=== PATIENT | male | born 1985 | race Two or more races ===

== ENCOUNTER 2020-06-07 05:29 | Inpatient (IN) | payer SELFPAY ==
[~2020-06-07] VITALS: Ht 177.8 cm; Wt 106.0 kg
[2020-06-07] MEDS ORDERED: ACETAMINOPHEN 325 MG TAB PO ONE (06:15)
[2020-06-07] MEDS ORDERED: SODIUM CHLORIDE 0.9% 1,000 ML IV ONE (06:30)
[2020-06-07] MEDS ORDERED: cefTRIAXone 1GM/50ML D5W 50 ML IV ONE (08:00)
[2020-06-07] MEDS ORDERED: AZITHROMYCIN 500MG/ 250ML 250 ML IV ONE (08:00)
[2020-06-07] MEDS ORDERED: ASCORBIC ACID 500 MG TAB PO ONE (08:00)
[2020-06-07] MEDS ORDERED: ZINC SULFATE 220mg CAP or TAB PO ONE (08:00)
[2020-06-07 08:01] LABS: Basophils # (auto) 0 10 ^3/uL (0-0.2); Basophils % (auto) 0.2 % (0.0-2.0); Eosinophils # (auto) 0 10 ^3/uL (0-0.8); Hematocrit 41.9 % (41.0-53.0); Hemoglobin 13.7 g/dL (13.5-17.5); Lymphocytes # (auto) 0.8 10 ^3/uL (0.4-5.4); Lymphocytes % (auto) 8.3 % (10.0-50.0); Mean Corpuscular Hemoglobin 27.9 pg (28.0-32.0); Mean Corpuscular Hgb Conc. 32.8 g/dL (32.0-36.0); Mean Corpuscular Volume 85.2 fL (80.0-100.0); Monocytes # (auto) 0.7 10 ^3/uL (0-1.3); Monocytes % (auto) 7.9 % (0.0-12.0); Neutrophils # (auto) 7.7 10 ^3/uL (1.6-8.6); Neutrophils % (auto) 83.6 % (37.0-80.0); Platelet Count (auto) 236 10^3/uL (140-450); Red Blood Cells 4.91 10^6/uL (4.5-5.90); Red Cell Distribution Width 13.6 % (11.8-14.3); White Blood Cell 9.2 10^3/uL (4.4-10.8)
[2020-06-07 08:21] LABS: Albumin 3.5 g/dL (3.4-5.0); Anion Gap 11 (5-15); Blood Urea Nitrogen 10 mg/dL (7-18); Calcium 8.6 mg/dL (8.5-10.1); Carbon Dioxide 23 mmol/L (21-32); Chloride 98 mmol/L (98-107); Glucose 96 mg/dL (74-106); Sodium 132 mmol/L (136-145)
[2020-06-07 08:29] LABS: Alanine Aminotransferase 182 U/L (16-61); Alkaline Phosphatase 160 U/L (45-117); Aspartate Aminotransferase 116 U/L (15-37); BUN/Creatinine Ratio 7.6; Bilirubin, Total 0.6 mg/dL (0.2-1.0); GFR African American 81 mL/min; GFR Non-African American 67 mL/min; Lactate Dehydrogenase 661 U/L (87-241); Total Protein 8.9 g/dL (6.4-8.2)
[2020-06-07] MEDS ORDERED: ACETAMINOPHEN 500 MG TAB PO PRN ×2 (09:30→10:15)
[2020-06-07] MEDS ORDERED: NITROGLYCERIN 0.4 MG SL TAB SL PRN (09:30)
[2020-06-07] MEDS ORDERED: MORPHINE SULF INJ 2 MG/ML SYRINGE 1ML IV PRN (09:30)
[2020-06-07 09:35] VITALS: BP 160/60
[2020-06-07] MEDS ORDERED: ZINC SULFATE 220mg CAP or TAB PO SCH (10:00)
[2020-06-07] MEDS ORDERED: ONDANSETRON HCL 4 MG/2 ML VIAL IV PRN (10:15)
[2020-06-07] MEDS ORDERED: HYDROcodone-ACET 5/325MG TAB PO PRN (10:15)
[2020-06-07] MEDS: DexAMETHasone SOD PHOS 10MG/1ML VIAL INJ IV SCH (10:20)
[2020-06-07] MEDS: CHOLECALCIFEROL (VITD3) 2,000 UNIT CAP PO SCH (10:20)
[2020-06-07] MEDS: ENOXAPARIN SOD 100 MG/1 ML SYRINGE SC SCH ×2 (10:20→22:02)
[2020-06-07] MEDS: ASCORBIC ACID 1,000 MG TAB PO SCH (10:20)
--- NOTE | 2020-06-07 11:34 | NUR ---
Report Received report from [place], ER
[2020-06-07] MEDS: BUDESONIDE (INHALATION) 180 MCG IH IN SCH ×2 (11:50→22:38)
--- NOTE | 2020-06-07 11:50 | NUR ---
Patient Arrived Patient arrived to unit from ER. Patient AOx4 on 6L nasal cannula. Safety precautions in place, will continue to monitor q1hr and PRN
[2020-06-07 12:42] VITALS: BP 110/64
[2020-06-07] MEDS: DOXYCYCLINE 100MG/250ML 250 ML IV SCH ×2 (13:44→22:01)
[2020-06-07] MEDS: ALBUTEROL SULF HFA 90MCG INH 200DOSE IN SCH ×3 (14:00→22:37)
[2020-06-07 14:20] VITALS: BP 110/64
[2020-06-07] MEDS ORDERED: REMDESIVIR 200 MG in NS 210ml LOADING DOSE ADULT IV ONE ×2 (15:00→16:00)
[2020-06-07] MEDS ORDERED: INFLUENZA QUAD 2020-2021 0.5 ML SYRG IM ONE (15:00)
--- NOTE | 2020-06-07 16:15 | NUR ---
Remdesivir Medication administration started. Starting BP 107/60 HR 60 15minute reassessment 122/65 HR 87 Infusion ended at 1715 BP 119/65 HR 84
--- NOTE | 2020-06-07 16:35 | NUR ---
U/A Sent Urine sample sent to lab.
[2020-06-07 17:21] VITALS: BP 107/60
[2020-06-07 17:28] LABS: Urine Bacteria NONE SEEN /hpf (None Seen); Urine Blood Negative /uL (Negative); Urine Specific Gravity 1.008 (1.001-1.035); Urine WBC 1 /hpf (0 - 3)
--- NOTE | 2020-06-07 19:30 | NUR ---
Opening Shift Note Assumed care of patient, awake and alert. Denies sob distress or pain. Instructed on POC and to call for assist PRN, will continue to monitor for changes Q1hr and PRN. Bed in low position and call light within reach. bed in low position and call light within reach
--- NOTE | 2020-06-07 19:42 | NUR ---
Closing Shift Note Endorsed patient care to DARIEL TORRES. Patient currently laying in bed, 6L nasal cannula SpO2 94%. No signs of distress at this time. RN aware of pending plasma. Addendum: 06/07/20 at 1943 by PATRICIO QUEVEDO RN RN Consents placed in chart.
[2020-06-07] MEDS: MORPHINE SULF INJ 2 MG/ML SYRINGE 1ML IV PRN (20:29)
--- NOTE | 2020-06-07 21:00 | NUR ---
Patient oxygen saturation fluctuating in the 85-88%, rr 21, b/p 105/63, heart rate 77bpm. Patient reports SOB. patient placed on 9 l Oxymizer.
[2020-06-07 22:00] VITALS: BP 108/74
--- NOTE | 2020-06-07 22:00 | NUR ---
Patient continues to have fluctuating oxygen saturation between 85-88%. Patient placed on non rebreather, by respiratory therapy, at 15l oxygen saturation now at 93%, rr 20. Respiratory therapy aware to breathing treatment scheduled
--- NOTE | 2020-06-07 22:50 | NUR ---
Patient oxygen saturation 93%. denies sob distress or pain. Breathing treatment given.
--- NOTE | 2020-06-07 23:22 | NUR ---
blood consent blood consent requires physician signature. Patient has no further questions stated he had signed consent down in emergency room and was explained of plasma benefits by ER doctor. Patient signed consents with dayshift BRIAN frost as consents were not brought up with patient from Emergency room.Patient is aware of plasma benefits and risks including side effects. Notified detacher unable to go down and obtain signature from hospitalist for blood consent, telephone order and notification for signature obtain from abi GAYLE.
[2020-06-08] VITALS (24 sets, daily range): BP systolic 99–121; BP diastolic 43–75
--- NOTE | 2020-06-08 | NUR ---
report given to BRIAN JACKSON. patient denies sob distress or pain.
--- NOTE | 2020-06-08 00:05 | NUR ---
Assumed care of patient, awake and alert. Assumed care of patient. Patient is awake and alert. No S/S of respiratory distress. Respirations are regular on 15 LPM non-rebreather mask. Bed in lowest locked position, side rails up x 2, call light is within reach. Instructed on POC and to call for assistance as needed. Will continue to monitor for changes Q1hr and PRN.
--- NOTE | 2020-06-08 00:55 | NUR ---
Plasma transfusion started at 0046. Patient is resting in bed. No s/s of distress. Tolerates well. No s/s of adverse reaction. Instructed to report any changes in condition. Will continue to monitor.
--- NOTE | 2020-06-08 01:30 | NUR ---
Plasma transfused. Plasma transfused at 0124. Patient tolerated well. VS WNL. Will continue to monitor.
[2020-06-08] MEDS: MORPHINE SULF INJ 2 MG/ML SYRINGE 1ML IV PRN (02:07)
[2020-06-08] MEDS: ALBUTEROL SULF HFA 90MCG INH 200DOSE IN SCH (06:39)
[2020-06-08] MEDS: BUDESONIDE (INHALATION) 180 MCG IH IN SCH (06:39)
[2020-06-08 07:17] LABS: Basophils # (auto) 0 10 ^3/uL (0-0.2); Basophils % (auto) 0.1 % (0.0-2.0); Eosinophils # (auto) 0 10 ^3/uL (0-0.8); Hematocrit 40.3 % (41.0-53.0); Hemoglobin 13.5 g/dL (13.5-17.5); Lymphocytes # (auto) 0.8 10 ^3/uL (0.4-5.4); Lymphocytes % (auto) 7.8 % (10.0-50.0); Mean Corpuscular Hemoglobin 28.6 pg (28.0-32.0); Mean Corpuscular Hgb Conc. 33.5 g/dL (32.0-36.0); Mean Corpuscular Volume 85.2 fL (80.0-100.0); Monocytes # (auto) 0.9 10 ^3/uL (0-1.3); Monocytes % (auto) 8.9 % (0.0-12.0); Neutrophils # (auto) 8.2 10 ^3/uL (1.6-8.6); Neutrophils % (auto) 83.2 % (37.0-80.0); Platelet Count (auto) 298 10^3/uL (140-450); Red Blood Cells 4.73 10^6/uL (4.5-5.90); Red Cell Distribution Width 13.4 % (11.8-14.3); White Blood Cell 9.8 10^3/uL (4.4-10.8)
[2020-06-08 07:27] LABS: Potassium 4.3 mmol/L (3.5-5.1)
[2020-06-08 07:41] LABS: BUN/Creatinine Ratio 13.8; Bilirubin, Total 0.3 mg/dL (0.2-1.0)
--- NOTE | 2020-06-08 08:00 | NUR ---
OOB Patient unable to get out of bed due to SOB
[2020-06-08] MEDS: DOXYCYCLINE 100MG/250ML 250 ML IV SCH ×2 (10:10→21:43)
[2020-06-08] MEDS: DexAMETHasone SOD PHOS 10MG/1ML VIAL INJ IV SCH (10:10)
[2020-06-08] MEDS: ZINC SULFATE 220mg CAP or TAB PO SCH (10:11)
[2020-06-08] MEDS: ASCORBIC ACID 1,000 MG TAB PO SCH (10:11)
[2020-06-08] MEDS: ENOXAPARIN SOD 100 MG/1 ML SYRINGE SC SCH ×2 (10:11→21:44)
[2020-06-08] MEDS: CHOLECALCIFEROL (VITD3) 2,000 UNIT CAP PO SCH (10:11)
[2020-06-08] MEDS: FAMOTIDINE 20 MG TAB PO SCH (10:11)
--- NOTE | 2020-06-08 11:48 | NUR ---
Nutrition Assessment/Consult Notes Please refer to link for full assessment notes. Est Energy needs: 5102-5385 kcals (14-18 kcal/kgBW) Est Protein needs: 113-136 gms/day (1.0-1.2 gm/kgBW) d/t pt elev LFTs Will continue to monitor and reassess prn. Addendum: 06/08/20 at [address] Amended: Links added.
--- NOTE | 2020-06-08 12:00 | NUR ---
Savage Felton bedside with patient.
--- NOTE | 2020-06-08 12:00 | NUR ---
OOB Patient unable to get out of bed at this time due to increased SOB
--- NOTE | 2020-06-08 12:42 | NUR ---
ABG DRAWN NO CRITICAL VALUES TO REPORT.
--- NOTE | 2020-06-08 12:44 | NUR ---
Report given to PIG MACHINE OPERATOR HELPEREdgardo. Patient to be transferred to room 107
--- NOTE | 2020-06-08 13:36 | NUR ---
Patient transferred off floor to ICU room 107. Patient moved with all personal belongs.
--- NOTE | 2020-06-08 13:45 | NUR ---
Pt being admitted to ICU JAYA SALES admitted to ICU via gurney on school bus monitor, and portable 02. Patient transfered to bed, connected to ICU monitoring and oxygen, and weighed by bedscale. Patient oriented to Stone pearson RN, unit, room, bed, and unit policies regarding patient care and visiting hours. All questions and concerns addressed, patient verbalized understanding.
[2020-06-08] MEDS: REMDESIVIR 100mg in NS 230ml DAILYx4DAYS (NO VENT) IV SCH (15:12)
--- NOTE | 2020-06-08 15:29 | NUR ---
URINATION PATIENT VOIDED CLEAR, YELLOW URINE INTO URINAL
--- NOTE | 2020-06-08 18:34 | NUR ---
PATIENT PROVIDED WITH LUNCH TRAY
--- NOTE | 2020-06-08 20:11 | NUR ---
PATIENT REFUSING PRONE POSITION PATIENT STATES THAT HE CAN NOT PRONE HE HAS DIFFICULTLY BREATHING WHILE LAYING ON HIS STOMACH. I ENCOURAGE PATIENT TO AT LEAST TO TURN SIDE TO SIDE, OFFERED ASSISTANCE, PATIENT STATED HE WILL TRY LATER.
[2020-06-08] MEDS: BUDESONIDE (INHALATION) 0.5 MG/2 ML NEB NEB SCH (22:22)
[2020-06-08] MEDS: ALBUTEROL SULF 2.5 MG/0.5ML(0.5%) NEB SOLN NEB SCH (22:22)
--- NOTE | 2020-06-08 23:49 | NUR ---
PATIENT RESTING IN BED PATIENT RESTING COMFORTABLY IN BED WHILE WATCHING TV, NO SIGN OF RESPIRATORY DISTRESS OR SOB. ON HIGH FLOW 60L, 80% OXYGEN. AOX4, RR 31, SPO2 94, HR 70, BP 106/52. AT THIS TIME PATIENT DOES NOT WANT TO TURN, EDUCATED HIM ON THE BENEFITS OF TURNING AND DOWN SIDE OF NOT TURNING PRONE OR SIDE TO SIDE. HE IS CURRENTLY USING INCENTIVE SPIROMETER.
[2020-06-09] VITALS (27 sets, daily range): BP systolic 92–120; BP diastolic 41–73
--- NOTE | 2020-06-09 01:15 | NUR ---
Respiratory note: PT SAT 97% WHEN ENTERING ROOM, CHANGED PULSE OX. PULSE OX READING WITH NEW PROBE 80%. INCREASED FIO2 TO 100% AT THIS TIME. PT PULSE OX INCREASED TO 92%. RN AT BEDSIDE. WILL CONTINUE TO MONITOR. IN ROOM FROM [id number]
--- NOTE | 2020-06-09 01:20 | NUR ---
PATIENT REPORTED CHEST PAIN DURING COUGHING. PATIENT REPORTED CHEST PAIN DURING COUGHING 10/10 PATIENT IS NOTED TO COUGH. REPORTS THAT IT IS HARD FOR HIM TO BREATH AND THAT IT FEELS LIKE HE CAN ONLY BREATH IN SMALL VOLUMES OF AIR. PATIENT DESATURATES TO 80% DURING COUCHING. RT SAW HIM, INCREASED FIO2 FROM 60L 80% TO 100%. OBTAIN 12 ECG: ECG READS "SINUS RHYTHM WITH FUSION COMPLEXES, OTHERWISE NORMAL ECG" PATIENT RECEIVED MORPHINE FOR HIS PAIN. BP 109/56.
--- NOTE | 2020-06-09 01:40 | NUR ---
PATIENT RESTING COMFORTABLY IN BED WITH HIS EYES CLOSED NO SIGN OF SOB, DISTRESS OR COUGH. PATIENT REPORTS RELIEF FROM PAIN (2/10) AND THAT IT IS NOW EASIER TO TAKE IN BREATHS. EDUCATED HIM TO NOTIFY ME IMMEDIATELY IF THE PAIN GETS WORSE, VERBALIZED UNDERSTANDING, CALL LIGHT WITHIN REACH.
[2020-06-09] MEDS: MORPHINE SULF INJ 2 MG/ML SYRINGE 1ML IV PRN (01:43)
--- NOTE | 2020-06-09 04:25 | NUR ---
Respiratory note: CHANGED WATER FOR HFNC AT THIS TIME
[2020-06-09] MEDS: ALBUTEROL SULF 2.5 MG/0.5ML(0.5%) NEB SOLN NEB SCH ×3 (06:20→22:15)
[2020-06-09] MEDS: BUDESONIDE (INHALATION) 0.5 MG/2 ML NEB NEB SCH ×2 (06:20→22:15)
--- NOTE | 2020-06-09 07:11 | NUR ---
REPORT RECEIVED FROM WOOD PATTERN MAKER RN
--- NOTE | 2020-06-09 07:32 | NUR ---
PATIENT UNABLE TO GET OUT OF BED DUE TO DECREASE IN SATS WITH MINIMAL MOVEMENTS Addendum: 06/09/20 at 0734 by Stone Ramirez RN Amended: Links added.
--- NOTE | 2020-06-09 08:20 | NUR ---
PRONE EDUCATED PATIENT ON IMPORTANCE OF PRONE POSITION. PATIENT STATES "MAYBE IN A LITTLE BIT I JUST WANT TO SLEEP RIGHT NOW". WILL CONTINUE TO EDUCATE PATIENT ON IMPORTANCE OF MONITORING
[2020-06-09] MEDS: DOXYCYCLINE 100MG/250ML 250 ML IV SCH (09:20)
[2020-06-09] MEDS: DexAMETHasone SOD PHOS 10MG/1ML VIAL INJ IV SCH (09:20)
[2020-06-09] MEDS: ENOXAPARIN SOD 100 MG/1 ML SYRINGE SC SCH ×2 (09:20→22:12)
[2020-06-09] MEDS: CHOLECALCIFEROL (VITD3) 2,000 UNIT CAP PO SCH (09:21)
[2020-06-09] MEDS: ASCORBIC ACID 1,000 MG TAB PO SCH (09:21)
[2020-06-09] MEDS: ZINC SULFATE 220mg CAP or TAB PO SCH (09:21)
[2020-06-09] MEDS: FAMOTIDINE 20 MG TAB PO SCH (09:21)
--- NOTE | 2020-06-09 09:37 | NUR ---
PATIENT PROVIDED WITH ITEMS TO BRUSH TEETH
[2020-06-09] MEDS ORDERED: CEFTRIAXONE SODIUM 2 GM in D5W 5% 50 ML IV ONE (12:30)
[2020-06-09] MEDS ORDERED: FUROSEMIDE 40 MG/4 ML VIAL IV ONE (12:30)
[2020-06-09] MEDS ORDERED: FUROSEMIDE 20 MG/2 ML VIAL IV ONE (12:45)
--- NOTE | 2020-06-09 14:35 | NUR ---
PRONE POSITION PATIENT ATTEMPTING TO PRONE. ON LEFT LATERAL SIDE AND DOESNT FEEL COMFORTABLE PLACED IN FULL PRONE POSITION
[2020-06-09] MEDS ORDERED: guaiFENesin-DM 100/10mg/5ml SYR PO PRN (14:45)
[2020-06-09] MEDS: REMDESIVIR 100mg in NS 230ml DAILYx4DAYS (NO VENT) IV SCH (16:07)
--- NOTE | 2020-06-09 16:18 | NUR ---
IRWIN CABAN AT BEDSIDE
--- NOTE | 2020-06-09 18:33 | NUR ---
PATIENT PROVIDED WITH DINNER TRAY
--- NOTE | 2020-06-09 18:42 | NUR ---
Respiratory note: RECEIVED PT ON HFNC UNIT, CHECK BEING DONE FROM PTS ROOM DOOR DUE TO COVID PRECAUTIONS. HFNC UNIT CONNECTED TO RED OUTLET, MEDICAL AIR AND O2 WALL SOURCE. AMBU BAG AND MASK AT BEDSIDE. NO CHANGES DONE. PT SITTING UP IN BED WATCHING TV, NO ACTIVE RESPIRATORY DISTRESS NOTED WILL CONTINUE TO MONITOR.
--- NOTE | 2020-06-09 21:45 | NUR ---
AT BEDSIDE IN FULL PPE DUE TO ISOLATION PRECAUTIONS. BS ARE DIMINISHED T/O. MED NEB TX GIVEN VIA INLINE AEROGEN. CATHY WATER CHANGED AT THIS TIME. NO ACTIVE DISTRESS NOTED. WILL CONTINUE TO MONITOR
[2020-06-09] MEDS: DOXYCYCLINE 100 MG TAB/CAP PO SCH (22:11)
[2020-06-10] VITALS (29 sets, daily range): BP systolic 89–124; BP diastolic 46–72
--- NOTE | 2020-06-10 00:21 | NUR ---
AT BEDSIDE IN FULL PPE DUE TO COVID PRECAUTIONS. FIO2 INCREASED TO 60% VIA HFNC DUE TO CONSISTENT DESATURATION TO MID 80S. POST FIO2 INCREASE POX NOW AT 90-93%. PT MOSOTHO SPEAKER MAINLY, EXPLAINED TO PT THE BENEFITS OF SELF PRONING. PT STATES HE ATTEMPTED DURING THE DAY TO BE ON HIS SIDE. EXPLAINED TO PT HE WOULD NEED TO BE COMPLETELY STOMACH LAYING FLAT ON BED TO BE PRONING, PT STATES HE CAN ATTEMPT AT A LATER TIME. WILL CONTINUE TO MONITOR, WILL COMMUNICATE TO BRIAN DUKE OF PT AND RT CONVERSATION.
--- NOTE | 2020-06-10 01:20 | NUR ---
AT BEDSIDE IN FULL PPE DUE TO ISOLATION PRECAUTIONS. AT BEDSIDE WITH RN SRIKANTH Patrick TO ASSIST PT IN SELF PRONING INSTRUCTED PT WITH BENEFITS OF INTERVENTION AND PT COMPLIANT. ASSISTED CAREFULLY TO PRONE POSITION. PT STATED HE FELT A LITTLE LIGHT-HEADED BUT SUBSIDED WHEN HE SETTLED COMPLETELY FLAT. PILLOWS PLACED FOR COMFORT. PT TOLERATING PRONING WELL. SATURATION NOW 96-99% PT REMAINS ON HFNC AT 60LPM 60% FIO2. NO S/S OF ACTIVE DISTRESS NOTED. CALL LIGHT AND PTS CELL PHONE PLACED WITHIN PTS REACH. PT AWARE WE CAN BE CALLED AT ANY TIME HE HAS A CONCERNS OR COMPLAINTS.
--- NOTE | 2020-06-10 03:00 | NUR ---
PATIENT RETURNED TO SUPINE POSITION WITH MINIMUM ASSISTANCE. TOLERATED PRONING WELL, NO DISTRESS OR SOB NOTED. OXYGENATION MAINTAINED AT 98 - 99% ON HFNC 60L, 60% SATURATES 94% AND ABOVE IN SUPINE POSITION, HOB 35 DEGREES PATIENT ON HIS CELL PHONE RESTING IN BED, CALL LIGHT WITHIN REACH.
[2020-06-10 04:31] LABS: Basophils # (auto) 0 10 ^3/uL (0-0.2); Eosinophils # (auto) 0 10 ^3/uL (0-0.8); Hematocrit 41.6 % (41.0-53.0); Hemoglobin 13.6 g/dL (13.5-17.5); Lymphocytes # (auto) 0.9 10 ^3/uL (0.4-5.4); Lymphocytes % (auto) 15.4 % (10.0-50.0); Mean Corpuscular Hemoglobin 27.8 pg (28.0-32.0); Mean Corpuscular Hgb Conc. 32.8 g/dL (32.0-36.0); Mean Corpuscular Volume 84.9 fL (80.0-100.0); Monocytes # (auto) 0.8 10 ^3/uL (0-1.3); Monocytes % (auto) 12.6 % (0.0-12.0); Neutrophils # (auto) 4.4 10 ^3/uL (1.6-8.6); Nucleated Red Blood Cells % 0.1 %; Platelet Count (auto) 438 10^3/uL (140-450); Red Cell Distribution Width 12.8 % (11.8-14.3); White Blood Cell 6.1 10^3/uL (4.4-10.8)
[2020-06-10 04:50] LABS: Albumin 2.9 g/dL (3.4-5.0); Calcium 8.9 mg/dL (8.5-10.1); Potassium 4.3 mmol/L (3.5-5.1)
[2020-06-10 04:55] LABS: Bilirubin, Total 0.6 mg/dL (0.2-1.0); Total Protein 7.4 g/dL (6.4-8.2)
[2020-06-10] MEDS: ALBUTEROL SULF 2.5 MG/0.5ML(0.5%) NEB SOLN NEB SCH ×3 (06:31→22:19)
[2020-06-10] MEDS: BUDESONIDE (INHALATION) 0.5 MG/2 ML NEB NEB SCH ×2 (06:31→22:19)
--- NOTE | 2020-06-10 07:12 | NUR ---
REPORT RECEIVED FROM REPRESENTATIVE PHLEBOTOMY SERVICES RN
[2020-06-10] MEDS: DexAMETHasone SOD PHOS 10MG/1ML VIAL INJ IV SCH (09:21)
[2020-06-10] MEDS: FUROSEMIDE 40 MG/4 ML VIAL IV SCH (09:21)
[2020-06-10] MEDS: FAMOTIDINE 20 MG TAB PO SCH (09:22)
[2020-06-10] MEDS: DOXYCYCLINE 100 MG TAB/CAP PO SCH ×2 (09:22→21:30)
[2020-06-10] MEDS: CEFTRIAXONE SODIUM 2 GM in D5W 5% 50 ML IV SCH (09:22)
[2020-06-10] MEDS: ASCORBIC ACID 1,000 MG TAB PO SCH (09:22)
[2020-06-10] MEDS: CHOLECALCIFEROL (VITD3) 2,000 UNIT CAP PO SCH (09:22)
[2020-06-10] MEDS: ZINC SULFATE 220mg CAP or TAB PO SCH (09:22)
[2020-06-10] MEDS: ENOXAPARIN SOD 100 MG/1 ML SYRINGE SC SCH ×2 (09:23→21:30)
--- NOTE | 2020-06-10 09:35 | NUR ---
PATIENT TO BEDSIDE COMMODE FOR BOWEL MOVEMENT NO RESPIRATORY DISTRESS NOTED, 02 SATURATION 92%
--- NOTE | 2020-06-10 10:01 | NUR ---
PATIENT TO BEDSIDE CHAIR
--- NOTE | 2020-06-10 10:20 | NUR ---
DR. MEDINA AT BEDSIDE
--- NOTE | 2020-06-10 10:40 | NUR ---
PATIENT CELL PHONE NUMBER [phone]
--- NOTE | 2020-06-10 10:41 | NUR ---
DR. ALBERTO AT BEDSIDE
--- NOTE | 2020-06-10 11:14 | NUR ---
PATIENT BACK TO BED
--- NOTE | 2020-06-10 14:41 | NUR ---
PARTIAL LINEN CHANGE PERFORMED AT THIS TIME
[2020-06-10] MEDS: REMDESIVIR 100mg in NS 230ml DAILYx4DAYS (NO VENT) IV SCH (16:44)
--- NOTE | 2020-06-10 17:41 | NUR ---
PATIENT RESTING IN NO DISTRESS
--- NOTE | 2020-06-10 18:40 | NUR ---
PATIENT PROVIDED WITH DINNER TRAY
[2020-06-11] VITALS (31 sets, daily range): BP systolic 92–120; BP diastolic 46–72
--- NOTE | 2020-06-11 02:50 | NUR ---
PATIENT IS ON BEDSIDE COMMODE PATIENT HAD SMALL SOFT BOWEL MOVEMENT WAS ABLE TO TRANSFER FROM BED TO COMMODE ON HIS OWN WITH MINIMUM DESATURATION.
--- NOTE | 2020-06-11 07:15 | NUR ---
Assumed care of pt., report received per BRIAN Rodriguez. No distress noted, pt. attached to monitor and reading sinus rhythm 60's, will cont.to monitor for any changes, call smith in reach, assessment ongoing.
[2020-06-11] MEDS: ALBUTEROL SULF 2.5 MG/0.5ML(0.5%) NEB SOLN NEB SCH ×3 (08:42→22:22)
[2020-06-11] MEDS: BUDESONIDE (INHALATION) 0.5 MG/2 ML NEB NEB SCH ×2 (08:42→22:22)
[2020-06-11] MEDS: DexAMETHasone SOD PHOS 10MG/1ML VIAL INJ IV SCH (09:44)
[2020-06-11] MEDS: ENOXAPARIN SOD 60 MG/0.6 ML SYRINGE SC SCH ×2 (09:57→22:07)
[2020-06-11] MEDS: FAMOTIDINE 20 MG TAB PO SCH (09:57)
[2020-06-11] MEDS: DOXYCYCLINE 100 MG TAB/CAP PO SCH ×2 (09:57→22:07)
[2020-06-11] MEDS: CHOLECALCIFEROL (VITD3) 2,000 UNIT CAP PO SCH (09:57)
[2020-06-11] MEDS: ZINC SULFATE 220mg CAP or TAB PO SCH (09:57)
[2020-06-11] MEDS: ASCORBIC ACID 1,000 MG TAB PO SCH (09:58)
[2020-06-11] MEDS: FUROSEMIDE 40 MG/4 ML VIAL IV SCH (10:16)
[2020-06-11] MEDS: CEFTRIAXONE SODIUM 2 GM in D5W 5% 50 ML IV SCH (10:16)
[2020-06-11 10:37] LABS: Albumin 2.8 g/dL (3.4-5.0); BUN/Creatinine Ratio 29.5; Calcium 8.3 mg/dL (8.5-10.1); Potassium 3.9 mmol/L (3.5-5.1)
[2020-06-11 10:39] LABS: Bilirubin, Total 0.6 mg/dL (0.2-1.0); Total Protein 7.3 g/dL (6.4-8.2)
--- NOTE | 2020-06-11 11:39 | NUR ---
Nutrition Followup Note Wt 105.0 kg Pt is positive for COVID, in isolation. per RN pt with poor appitite but is tolerating PO. pt is currently on regular diet with inadequate PO of < 50% x 5 per RN doc, Est Energy needs: 3866-8488 kcals (14-18 kcal/kgBW), Est Protein needs: 113-136 gms/day (1.0-1.2 gm/kgBW) d/t pt elev LFTs. Will continue to monitor and reassess prn. Labs: BUN 24 H ALB 2.9 L BM: Pt has no BM reported per RN note Skin: BS 17 mod risk, full details in child care team lead note PES: Altered nutrition related lab values r.t current chronic medical condition aeb elev LFTs hypoalb Comments Will continue to monitor PO intake, skin status, pertinent labs and weight trends. Will f/u in 3-5 days Rec: 1) refer pt to [facility] on Dc. 2) Continue current plan of care
[2020-06-11] MEDS ORDERED: SODIUM CHLORIDE 0.9 % NEB SOLN 3ML NEB ONE (14:36)
[2020-06-11] MEDS: REMDESIVIR 100mg in NS 230ml DAILYx4DAYS (NO VENT) IV SCH (15:55)
--- NOTE | 2020-06-11 19:21 | NUR ---
No distress noted, pt. report given to BRIAN Jordan. Care of pt assumed per NOC RN, Day shift RN relinquished care and signed off.
--- NOTE | 2020-06-11 20:10 | NUR ---
PATIENT ON BEDSIDE COMMODE PATIENT HAD LARGE SOFT BM AND ONE VOID. PATIENT WAS ABLE TO TRANSFER TO BEDSIDE COMMODE AND BACK WITH MINIMUM ASSISTANCE.
[2020-06-12] VITALS (24 sets, daily range): BP systolic 89–124; BP diastolic 37–73
--- NOTE | 2020-06-12 00:56 | NUR ---
PATIENT TURNED TO HIS LEFT SIDE TURNED 45 DEGREES TO HIS LEFT SIDE TOLERATING TURN WELL AT THIS MOMENT, ON HIS PHONE
--- NOTE | 2020-06-12 01:24 | NUR ---
PATIENT IS IN PRONE POSITION PILLOWS PLACED UNDER HIPS, TWO PILLOWS PLACED UNDER CHEST. PATIENT RESTING COMFORTABLY, ON HIS CELLPHONE, CALL LIGHT WITH REACH. VS: HR 73, SPO2 98%, RR 24 ON HIGH FLOW 60L, 60%
--- NOTE | 2020-06-12 02:30 | NUR ---
PATIENT TURNED TO SUPINE POSITION WITH ASSISTANCE, TOLERATED PRONE POSITION WELL, NO DISTRESS OR SOB NOTED. VS ARE STABLE.
[2020-06-12 04:23] LABS: Basophils # (auto) 0 10 ^3/uL (0-0.2); Eosinophils # (auto) 0 10 ^3/uL (0-0.8); Hematocrit 45.1 % (41.0-53.0); Hemoglobin 14.7 g/dL (13.5-17.5); Lymphocytes % (auto) 13.9 % (10.0-50.0); Mean Corpuscular Hemoglobin 27.5 pg (28.0-32.0); Mean Corpuscular Hgb Conc. 32.6 g/dL (32.0-36.0); Mean Corpuscular Volume 84.5 fL (80.0-100.0); Monocytes # (auto) 0.8 10 ^3/uL (0-1.3); Neutrophils # (auto) 5.5 10 ^3/uL (1.6-8.6); Neutrophils % (auto) 75.1 % (37.0-80.0); Nucleated Red Blood Cells % 0.1 %; Platelet Count (auto) 551 10^3/uL (140-450); Red Blood Cells 5.34 10^6/uL (4.5-5.90); White Blood Cell 7.3 10^3/uL (4.4-10.8)
[2020-06-12 05:52] LABS: Albumin 3.2 g/dL (3.4-5.0); BUN/Creatinine Ratio 25.7; Calcium 9.1 mg/dL (8.5-10.1); Potassium 4.2 mmol/L (3.5-5.1)
[2020-06-12 05:55] LABS: Bilirubin, Total 0.6 mg/dL (0.2-1.0)
[2020-06-12] MEDS: BUDESONIDE (INHALATION) 0.5 MG/2 ML NEB NEB SCH (07:57)
[2020-06-12] MEDS: ALBUTEROL SULF 2.5 MG/0.5ML(0.5%) NEB SOLN NEB SCH ×2 (07:57→14:43)
--- NOTE | 2020-06-12 08:30 | NUR ---
MEE CAGE SUPERVISOR AT PATIENT'S DOOR.
[2020-06-12] MEDS: FAMOTIDINE 20 MG TAB PO SCH (09:38)
[2020-06-12] MEDS: CEFTRIAXONE SODIUM 2 GM in D5W 5% 50 ML IV SCH (09:38)
[2020-06-12] MEDS: ZINC SULFATE 220mg CAP or TAB PO SCH (09:38)
[2020-06-12] MEDS: DexAMETHasone SOD PHOS 10MG/1ML VIAL INJ IV SCH (09:38)
[2020-06-12] MEDS: DOXYCYCLINE 100 MG TAB/CAP PO SCH ×2 (09:39→21:22)
[2020-06-12] MEDS: ENOXAPARIN SOD 60 MG/0.6 ML SYRINGE SC SCH ×2 (09:39→21:22)
[2020-06-12] MEDS: CHOLECALCIFEROL (VITD3) 2,000 UNIT CAP PO SCH (09:39)
[2020-06-12] MEDS: ASCORBIC ACID 1,000 MG TAB PO SCH (09:39)
--- NOTE | 2020-06-12 10:19 | NUR ---
PROGRESS NOTE PATIENT SLEEPING IN BED, NO DISTRESS OR SOB NOTED. PATIENT EASILY AWAKEN.
--- NOTE | 2020-06-12 10:35 | NUR ---
DR CAROL MARCOS
--- NOTE | 2020-06-12 10:40 | NUR ---
DR REMY MARCOS
--- NOTE | 2020-06-12 14:05 | NUR ---
assessment Patient is a 35 year old male who is in ICU Covid positive. Per patients sara Gonzalez prior to admission patient lived home with her and family and was independent. Patient has no DME or oxygen. Patient was having shortness of breath so family called 911 and patient was admitted to ICU. I informed Lisa I will continue to monitor and follow up as appropriate for any post discharge needs. Lisa verbalized understanding. Addendum: 06/12/20 at 1413 by Martha CAMACHO Amended: Links added.
[2020-06-12] MEDS ORDERED: SODIUM CHLORIDE 0.9 % NEB SOLN 3ML NEB ONE (14:22)
--- NOTE | 2020-06-12 14:55 | NUR ---
REPORT GIVEN TO ROSA TORRES
--- NOTE | 2020-06-12 15:00 | NUR ---
Opening Shift Note Assumed care of patient, awake and alert. No S/S of distress/SOB or pain. Instructed on POC and to call for assist PRN, will continue to monitor for changes Q1hr and PRN.
--- NOTE | 2020-06-12 18:00 | NUR ---
Food tray given to patient. Patient currently eating meal independently with no noted difficulties. RN will continue to monitor and assess patient.
[2020-06-13] VITALS (18 sets, daily range): BP systolic 97–124; BP diastolic 49–72
[2020-06-13] MEDS: ALBUTEROL SULF 2.5 MG/0.5ML(0.5%) NEB SOLN NEB SCH ×4 (00:20→22:00)
[2020-06-13] MEDS: BUDESONIDE (INHALATION) 0.5 MG/2 ML NEB NEB SCH ×3 (00:21→22:00)
[2020-06-13 04:47] LABS: Basophils # (auto) 0 10 ^3/uL (0-0.2); Basophils % (auto) 0.1 % (0.0-2.0); Eosinophils # (auto) 0 10 ^3/uL (0-0.8); Eosinophils % (auto) 0.3 % (0.0-7.0); Hematocrit 45.7 % (41.0-53.0); Hemoglobin 15.1 g/dL (13.5-17.5); Lymphocytes # (auto) 1.8 10 ^3/uL (0.4-5.4); Lymphocytes % (auto) 17.9 % (10.0-50.0); Mean Corpuscular Hemoglobin 27.7 pg (28.0-32.0); Monocytes # (auto) 1.5 10 ^3/uL (0-1.3); Monocytes % (auto) 14.4 % (0.0-12.0); Neutrophils # (auto) 6.9 10 ^3/uL (1.6-8.6); Neutrophils % (auto) 67.3 % (37.0-80.0); Platelet Count (auto) 581 10^3/uL (140-450); Red Blood Cells 5.44 10^6/uL (4.5-5.90); White Blood Cell 10.2 10^3/uL (4.4-10.8)
[2020-06-13 05:35] LABS: Albumin 3.1 g/dL (3.4-5.0); BUN/Creatinine Ratio 26.5; Bilirubin, Total 0.4 mg/dL (0.2-1.0); Calcium 8.8 mg/dL (8.5-10.1); Potassium 3.6 mmol/L (3.5-5.1); Total Protein 7.5 g/dL (6.4-8.2)
--- NOTE | 2020-06-13 09:00 | NUR ---
Respiratory note: PT TAKEN OFF HIGH FLOW AND PLACED ON 8 LPM OXYMIZER. PT TOLERATING WELL. SP02 94 TO 96%. PT AWARE TO HIT CALL LIGHT IF SOB. WILL CONTINUE TO MONITOR.
[2020-06-13] MEDS: CEFTRIAXONE SODIUM 2 GM in D5W 5% 50 ML IV SCH (09:23)
[2020-06-13] MEDS: DOXYCYCLINE 100 MG TAB/CAP PO SCH ×2 (10:00→21:18)
[2020-06-13] MEDS ORDERED: FUROSEMIDE 40 MG TAB PO SCH (10:00)
[2020-06-13] MEDS: ASCORBIC ACID 1,000 MG TAB PO SCH (10:00)
[2020-06-13] MEDS: CHOLECALCIFEROL (VITD3) 2,000 UNIT CAP PO SCH (10:00)
[2020-06-13] MEDS: FAMOTIDINE 20 MG TAB PO SCH (10:00)
[2020-06-13] MEDS: ZINC SULFATE 220mg CAP or TAB PO SCH (10:00)
[2020-06-13] MEDS: ENOXAPARIN SOD 60 MG/0.6 ML SYRINGE SC SCH ×2 (10:00→21:18)
--- NOTE | 2020-06-13 10:26 | NUR ---
DR. ASENCIO HERE TO SEE PATIENT. SEE MD NOTES AND EMR FOR ANY NEW ORDERS.
--- NOTE | 2020-06-13 10:43 | NUR ---
DR. Miranda HERE TO SEE PATIENT. SEE MD NOTES AND EMR FOR ANY NEW ORDERS.
--- NOTE | 2020-06-13 21:22 | NUR ---
Called BRIAN Paez and gave report. Patient is to go to Tele unit on [place] [address] to room 247B.
--- NOTE | 2020-06-13 22:00 | NUR ---
assumed care of this patient at this time. pt is on 6L oxyimzer.
--- NOTE | 2020-06-13 22:00 | NUR ---
PT MOVED TO NON NEGATIVE PRESSURE ROOM, UNABLE TO PERFORM MEED NEB , MDI/DPI SUBSTITUTES ORDERED
--- NOTE | 2020-06-13 22:00 | NUR ---
Patient transferred to tele unit via protocol. No adverse events occurred. Patient tolerated transfer well.
[2020-06-13] MEDS: BUDESONIDE (INHALATION) 180 MCG IH IN SCH (22:15)
[2020-06-14] VITALS (7 sets, daily range): BP systolic 106–119; BP diastolic 61–79
--- NOTE | 2020-06-14 07:00 | NUR ---
closing note pt is on 6L oxymizer. no c/o of pain or discomfort. pt "feels better". no s/s of respiratory distress. endorsed care to day shift BRIAN Martin.
[2020-06-14] MEDS: BUDESONIDE (INHALATION) 180 MCG IH IN SCH ×2 (07:06→21:24)
[2020-06-14] MEDS: ALBUTEROL SULF 2.5 MG/0.5ML(0.5%) NEB SOLN NEB SCH (07:06)
--- NOTE | 2020-06-14 07:06 | NUR ---
Respiratory note: assessed pt , awake and alert, no resp distress noted. mdi's not at bedside, will call pharmacy. hr 76, rr 16, spo2 98% on 6l oxymizer. tiitrated fio2 to 4l oxymizer.
--- NOTE | 2020-06-14 07:30 | NUR ---
DECREASE OXYGEN TO 5 L, CONTINUE MONITORING
--- NOTE | 2020-06-14 08:00 | NUR ---
ASSESSMENT NOTE PT IS ALERT ORIENTED X4, RESTING IN BED COMFORTABLE,NO DISTRESS NOTED,ABLE TO SELF REPOSITION AND VERBALIS HIS NEEDS, OXYGEN 5 L OXYMIZER AT 97%, ABLE TO SELF REPOSITION AND VERBALIS UNDERSTANDING,NO DISTRESS NOTED, PAIN 0/10,CALL LIGHT WITHIN REACH
[2020-06-14] MEDS: FUROSEMIDE 40 MG TAB PO SCH (09:09)
[2020-06-14] MEDS: ZINC SULFATE 220mg CAP or TAB PO SCH (09:09)
[2020-06-14] MEDS: ASCORBIC ACID 1,000 MG TAB PO SCH (09:10)
[2020-06-14] MEDS: CHOLECALCIFEROL (VITD3) 2,000 UNIT CAP PO SCH (09:10)
[2020-06-14] MEDS: ENOXAPARIN SOD 60 MG/0.6 ML SYRINGE SC SCH ×2 (09:10→21:08)
[2020-06-14] MEDS: DOXYCYCLINE 100 MG TAB/CAP PO SCH ×2 (09:10→21:08)
[2020-06-14] MEDS: FAMOTIDINE 20 MG TAB PO SCH (09:10)
[2020-06-14] MEDS: DexAMETHasone SOD PHOS 10MG/1ML VIAL INJ IV SCH (09:11)
[2020-06-14] MEDS: CEFTRIAXONE SODIUM 2 GM in D5W 5% 50 ML IV SCH (09:57)
--- NOTE | 2020-06-14 14:14 | NUR ---
Nutrition Followup Note Wt 104.6 kg Pt is positive for COVID, in isolation. per reocrds pt with desat O2. pt is currently on regular diet with fair PO of avg 60% x 4 per RN doc, Est Energy needs: 4645-1564 kcals (14-18 kcal/kgBW), Est Protein needs: 113-136 gms/day (1.0-1.2 gm/kgBW) d/t pt elev LFTs. Will continue to monitor and reassess prn. Labs: BUN 27 H ALB 3.1 L BM: Pt had 1 BM today per RN note Skin: BS 17 mod risk, full details in hearing care practitioner note PES: Altered nutrition related lab values r.t current chronic medical condition aeb elev LFTs hypoalb Comments Will continue to monitor PO intake, skin status, pertinent labs and weight trends. Will f/u in 3-5 days Rec: 1) refer pt to [facility]PD on Dc. 2) Continue current plan of care
[2020-06-14] MEDS: ALBUTEROL SULF HFA 90MCG INH 200DOSE IN SCH ×2 (14:16→21:24)
--- NOTE | 2020-06-14 14:16 | NUR ---
Respiratory note: TITRATED FIO2 FROM 5L OXYMIZER TO 2L N/C. SPO2 94%
--- NOTE | 2020-06-14 15:00 | NUR ---
IV insertion IV access obtained, via clean sterile technique by inserting 22 gauge catheter at after attempt(s). IV secured properly. No trauma to site. Patient tolerated procedure well.
--- NOTE | 2020-06-14 18:43 | NUR ---
PT CONTINUE STABLE, NO DISTRESS NOTED, CONTINUE MONITORING
[2020-06-15 05:00] VITALS: BP 114/68
[2020-06-15] MEDS: ALBUTEROL SULF HFA 90MCG INH 200DOSE IN SCH ×3 (06:14→22:39)
[2020-06-15] MEDS: BUDESONIDE (INHALATION) 180 MCG IH IN SCH ×2 (06:14→22:39)
--- NOTE | 2020-06-15 06:54 | NUR ---
closing note pt is resting in semi fowlers with HOB at 30 degrees. no s/s of respiratory distress. pt denies pain or discomfort. pt is on 2Lnc. o2 saturation is 98%. endorsed care to day shift RN.
[2020-06-15 07:35] LABS: Basophils # (auto) 0 10 ^3/uL (0-0.2); Lymphocytes # (auto) 2.7 10 ^3/uL (0.4-5.4); Monocytes # (auto) 1.9 10 ^3/uL (0-1.3)
[2020-06-15 07:37] LABS: Basophils % (auto) 0.1 % (0.0-2.0); Eosinophils # (auto) 0 10 ^3/uL (0-0.8); Eosinophils % (auto) 0.3 % (0.0-7.0); Hematocrit 44.8 % (41.0-53.0); Lymphocytes % (auto) 21.4 % (10.0-50.0); Mean Corpuscular Hemoglobin 27.9 pg (28.0-32.0); Mean Corpuscular Hgb Conc. 33.4 g/dL (32.0-36.0); Mean Corpuscular Volume 83.6 fL (80.0-100.0); Monocytes % (auto) 14.9 % (0.0-12.0); Neutrophils # (auto) 8.1 10 ^3/uL (1.6-8.6); Neutrophils % (auto) 63.3 % (37.0-80.0); Nucleated Red Blood Cells % 0.2 %; Platelet Count (auto) 612 10^3/uL (140-450); Red Blood Cells 5.35 10^6/uL (4.5-5.90); Red Cell Distribution Width 13.2 % (11.8-14.3); White Blood Cell 12.8 10^3/uL (4.4-10.8)
--- NOTE | 2020-06-15 08:00 | NUR ---
ASSESSMENT NOTE PT IS ALERT ORIENTED X4, RESTING IN BED COMFORTABLE,NO DISTRESS NOTED,ABLE TO SELF REPOSITION AND VERBALIS HIS NEEDS, OXYGEN 2 L OXYMIZER AT 96%, ABLE TO SELF REPOSITION AND VERBALIS UNDERSTANDING,NO DISTRESS NOTED, PAIN 0/10,CALL LIGHT WITHIN REACH
[2020-06-15 08:01] LABS: Potassium 3.5 mmol/L (3.5-5.1)
[2020-06-15 08:12] LABS: Albumin 3.2 g/dL (3.4-5.0); BUN/Creatinine Ratio 26.5; Calcium 8.9 mg/dL (8.5-10.1)
[2020-06-15 08:14] LABS: Bilirubin, Total 0.3 mg/dL (0.2-1.0); Total Protein 7.3 g/dL (6.4-8.2)
[2020-06-15 09:00] VITALS: BP 107/65
[2020-06-15] MEDS: DexAMETHasone SOD PHOS 10MG/1ML VIAL INJ IV SCH (09:28)
[2020-06-15] MEDS: FAMOTIDINE 20 MG TAB PO SCH (09:29)
[2020-06-15] MEDS: DOXYCYCLINE 100 MG TAB/CAP PO SCH ×2 (09:29→21:50)
[2020-06-15] MEDS: ZINC SULFATE 220mg CAP or TAB PO SCH (09:29)
[2020-06-15] MEDS: FUROSEMIDE 40 MG TAB PO SCH (09:30)
[2020-06-15] MEDS: ASCORBIC ACID 1,000 MG TAB PO SCH (09:30)
[2020-06-15] MEDS: CHOLECALCIFEROL (VITD3) 2,000 UNIT CAP PO SCH (09:31)
[2020-06-15] MEDS: ENOXAPARIN SOD 60 MG/0.6 ML SYRINGE SC SCH ×2 (09:31→21:50)
[2020-06-15] MEDS: CEFTRIAXONE SODIUM 2 GM in D5W 5% 50 ML IV SCH (09:45)
--- NOTE | 2020-06-15 10:20 | NUR ---
DR JORDAN AT BED SIDE FOLLOWING UP ON PT
--- NOTE | 2020-06-15 10:40 | NUR ---
AMBULATED PRT IN THE HALLWAYS 100 FEET AND BACK TO BED ON ROOM AIR PT SAT AT 88 %, DR JORDAN AWARE AT THE NURSING STATION
[2020-06-15] MEDS ORDERED: POTASSIUM CHL 20 Meq TABLET PO ONE (12:45)
[2020-06-15] MEDS ORDERED: FUROSEMIDE 20 MG/2 ML VIAL IV ONE (12:45)
[2020-06-15 12:54] VITALS: BP 134/76
[2020-06-15 17:00] VITALS: BP 114/69
--- NOTE | 2020-06-15 18:49 | NUR ---
PT IS SITTING UP EATING DINNER, NO DISTRESS NOTED, ON ROOM AIR SAT AT 96%, CONTINUE MONITORING
[2020-06-15 22:00] VITALS: BP 101/52
[2020-06-16 05:00] VITALS: BP 106/73
--- NOTE | 2020-06-16 06:59 | NUR ---
closing note pt sitting in chair at bedside. pt is on room air. no s/s of pain or distress. no respiratory noted. endorsed care to day shift RN.
[2020-06-16] MEDS: ALBUTEROL SULF HFA 90MCG INH 200DOSE IN SCH ×2 (07:09→14:22)
[2020-06-16] MEDS: BUDESONIDE (INHALATION) 180 MCG IH IN SCH (07:09)
[2020-06-16 08:00] VITALS: BP 100/61
[2020-06-16] MEDS: DexAMETHasone SOD PHOS 10MG/1ML VIAL INJ IV SCH (11:17)
[2020-06-16] MEDS: CEFTRIAXONE SODIUM 2 GM in D5W 5% 50 ML IV SCH (11:17)
[2020-06-16] MEDS: FUROSEMIDE 40 MG TAB PO SCH (11:17)
[2020-06-16] MEDS: FAMOTIDINE 20 MG TAB PO SCH (11:18)
[2020-06-16] MEDS: ASCORBIC ACID 1,000 MG TAB PO SCH (11:18)
[2020-06-16] MEDS: ZINC SULFATE 220mg CAP or TAB PO SCH (11:18)
[2020-06-16] MEDS: DOXYCYCLINE 100 MG TAB/CAP PO SCH (11:18)
[2020-06-16] MEDS: ENOXAPARIN SOD 60 MG/0.6 ML SYRINGE SC SCH (11:19)
[2020-06-16] MEDS: CHOLECALCIFEROL (VITD3) 2,000 UNIT CAP PO SCH (11:19)
--- NOTE | 2020-06-16 11:30 | NUR ---
Nutrition Consult and Followup Note Wt 106.0 kg Pt is positive for COVID, in isolation. Pt is a consult for new DM, pt is with a HgbA1C of 6.4 which is close to new diabetes. Attempted to speak to pt over the phone to advise pt on benefits of lifestyle modifications. pt would benefit from outpatient followup care for diet and lifestyle modification education. Pt is with a Regular diet with a good appetite aeb pt with an avg po intake of 75% x 2 days per RN nutrition note. Est Energy needs: 8263-5606 kcals (14-18 kcal/kgBW), Est Protein needs: 113-136 gms/day (1.0-1.2 gm/kgBW) d/t pt elev LFTs. Will continue to monitor and reassess prn. Labs: BUN 26H, Alb 3.2L BM: Pt had 1 BM today per RN note Skin: BS 17 mod risk, full details in senior care provider note PES: Altered nutrition related lab values r.t current chronic medical condition aeb elev LFTs hypoalb Comments Will continue to monitor PO intake, skin status, pertinent labs and weight trends. Will f/u in 3-5 days Rec: 1) refer pt to [facility]PD on Dc. 2) Continue current plan of care
[2020-06-16 12:00] VITALS: BP 116/66
[2020-06-16 14:21] VITALS: BP 109/61
--- NOTE | 2020-06-16 15:22 | NUR ---
Discharge instructions given as ordered. Encourage to follow up with discharge clinic as instructed. All questions and concerns addressed. Patient verbalized understanding. Medication reconciliation form completed and copy given to patient.. IV removed with catheter intact, pressure dressing applied. Telemetry unit returned to ICU. Patient taken to vehicle via wheelchair with all personal belongings, accompanied by staff to family member. No distress noted at time of departure.
[2020-06-17 09:31] LABS: Hepatitis B Surface Antibody Negative
[2020-06-17 10:05] LABS: Hepatitis A Total Antibody Positive
[2020-06-17 11:12] LABS: Hepatitis B Surface Antigen Negative (Negative)
[2020-06-17 11:13] LABS: Hepatitis B Core Total AB Negative; Hepatitis C Antibody Negative (Negative)
== END 2020-06-16 17:23 | disposition home or self-care (01) | DRG 871 ==
LOC: EDBD 05:29 → ER 05:29 → TELE 05:30 → TELE-EAST 11:50 → ICU WEST 06-08 13:40 → TELE-EAST 06-13 22:21
PROVIDERS: ADMIT Nurse Practitioner Acute Care; ATTEND Internal Medicine
PROC: XW033E5 Introduction of Remdesivir Anti-infective into Peripheral Vein, Percutaneous Approach, New Technology Group 5 (ICD-10-PCS; principal; 2020-06-07)
PROC: XW13325 Transfusion of Convalescent Plasma (Nonautologous) into Peripheral Vein, Percutaneous Approach, New Technology Group 5 (ICD-10-PCS; 2020-06-08)
DX: A41.89 Other specified sepsis (principal); U07.1 COVID-19; J12.89 Other viral pneumonia; J96.01 Acute respiratory failure with hypoxia; D68.59 Other primary thrombophilia; R65.20 Severe sepsis without septic shock; E66.01 Morbid (severe) obesity due to excess calories; Z68.33 Body mass index [BMI] 33.0-33.9, adult; G47.33 Obstructive sleep apnea (adult) (pediatric); Z83.3 Family history of diabetes mellitus; G43.909 Migraine, unspecified, not intractable, without status migrainosus; R73.9 Hyperglycemia, unspecified; N18.30 Chronic kidney disease, stage 3 unspecified; R74.01 Elevation of levels of liver transaminase levels
CPT/HCPCS: 36415; 36600; 71045; 76705; 80053; 81001; 82728; 82805; 83036; 83615; 83735; 84484; 85025; 85379; 86141; 86704; 86706; 86708; 86803; 86850; 86900; 86901; 87040; 87081; 87340; 87426; 87804; 93970; 94640; 96361; 96365; 96368; 99291; G0378; J0696; J1100; J3490; J7060